=== PATIENT | male | born 1970 | race African-American/Black ===

== ENCOUNTER 2022-03-17 04:17 | Day surgery (SDC) | payer BC ==
[2022-03-15 15:32] VITALS: BMI 22.9
[2022-03-17 10:41] VITALS: TEMP 98
[2022-03-17 10:53] VITALS: RESP 19
[2022-03-17 12:16] VITALS: BP 116/69; PULSE 66
== END 2022-03-17 12:10 | disposition home or self-care (01) ==
LOC: JASU-ENDO 04:17
PROVIDERS: ATTEND Internal Medicine Gastroenterology
PROC: 0DBN8ZX Excision of Sigmoid Colon, Via Natural or Artificial Opening Endoscopic, Diagnostic (ICD-10-PCS; 2022-03-17)
PROC: 0DBK8ZX Excision of Ascending Colon, Via Natural or Artificial Opening Endoscopic, Diagnostic (ICD-10-PCS; principal; 2022-03-17 11:00)
DX: Z12.11 Encounter for screening for malignant neoplasm of colon (principal); D12.2 Benign neoplasm of ascending colon; D12.5 Benign neoplasm of sigmoid colon; K57.30 Diverticulosis of large intestine without perforation or abscess without bleeding; K64.8 Other hemorrhoids; E11.9 Type 2 diabetes mellitus without complications
CPT/HCPCS: 82962; 88305-TC

== ENCOUNTER 2023-03-24 09:22 | Emergency (ER) | payer BC, OTHER ==
[2023-03-24 09:28] VITALS: BMI 23.9
[2023-03-24] MEDS ORDERED: SODIUM CHLORIDE 0.9% 500 ML INFUS.BAG IV ONE ×2 (10:48→13:43)
[2023-03-24] MEDS ORDERED: ONDANSETRON 4 MG/2 ML VIAL IVPUSH ONE (10:48)
[2023-03-24] MEDS ORDERED: FAMOTIDINE 20 MG/50 ML IVPB 20 MG/50 ML MG IVPB ONE ×2 (10:48→11:17)
[2023-03-24] MEDS ORDERED: ONDANSETRON 4 MG/2 ML VIAL ONE (11:17)
[2023-03-24 11:54] LABS: VENOUS BASE EXCESS 0.6 mmol/L (-2-2); VENOUS O2 SATURATION 73.9 % (70-80); VENOUS PCO2 47.8 mmHg (38-52); VENOUS PH 7.365 (7.310-7.410)
[2023-03-24 11:58] LABS: HEMATOCRIT 47.3 % (35.4-49); MCH 28.1 pg (25.7-33.7); MCHC 33.9 g/dl (32.0-35.9); MEAN CELL VOLUME 82.9 fl (80-96); MEAN PLT VOLUME 9.4 fl (7.5-11.1); PLATELET COUNT 141 10^3/uL (134-434); RDW 13.9 % (11.9-15.9); WHITE BLOOD COUNT 9.9 K/mm3 (4.0-10.0)
[2023-03-24 12:04] LABS: INR 1.1 (0.83-1.09); PROTHROMBIN TIME (PATIENT) 12.8 SEC (9.7-13.0)
[2023-03-24] MEDS ORDERED: KETOROLAC TROMETHAMINE 30 MG/1 ML VIAL IVPUSH ONE (12:08)
[2023-03-24 12:24] LABS: ALBUMIN 3.9 g/dl (3.4-5.0); CALCIUM 9.1 mg/dL (8.5-10.1)
[2023-03-24 12:25] LABS: BLOOD UREA NITROGEN 21.6 mg/dL (7-18); MAGNESIUM 2.2 mg/dL (1.8-2.4)
[2023-03-24 12:27] LABS: CREATININE 1.1 mg/dL (0.55-1.3)
[2023-03-24] MEDS ORDERED: KETOROLAC TROMETHAMINE 30 MG/1 ML VIAL ONE (12:27)
[2023-03-24 12:29] LABS: BILIRUBIN,TOTAL 1.6 mg/dL (0.2-1); TOT PROT 7.5 g/dl (6.4-8.2)
[2023-03-24 12:33] LABS: THROAT:GRP A STREP NOT DETECTED (NOTDETECTED)
[2023-03-24 12:39] LABS: ANISOCYTOSIS 0; MACROCYTOSIS 0
[2023-03-24 13:01] LABS: URINE APPEARANCE CLEAR; URINE COLOR YELLOW
[2023-03-24 13:02] LABS: URINE BILIRUBIN NEGATIVE (NEGATIVE); URINE KETONE TRACE (NEGATIVE)
[2023-03-24 13:03] LABS: PH,URINE 5.5 (5.0-8.0); URINE GLUCOSE (UA) 3+ (NEGATIVE); URINE LEUK ESTERASE NEGATIVE (NEGATIVE); URINE NITRITE NEGATIVE (NEGATIVE); URINE PROTEIN NEGATIVE (NEGATIVE); URINE UROBILINOGEN 0.2 mg/dL (0.2-1.0)
[2023-03-24 13:41] VITALS: RESP 20
[2023-03-24] MEDS ORDERED: ACETAMINOPHEN 1000 MG/100 ML BAG IVPB ONE (13:43)
[2023-03-24 17:16] VITALS: BP 122/82; PULSE 89
[2023-03-24 19:14] VITALS: TEMP 97.8
== END 2023-03-24 19:34 | disposition home or self-care (01) ==
LOC: JER 09:22
PROC: 3E033GC Introduction of Other Therapeutic Substance into Peripheral Vein, Percutaneous Approach (ICD-10-PCS; principal; 2023-03-24)
PROC: 3E033NZ Introduction of Analgesics, Hypnotics, Sedatives into Peripheral Vein, Percutaneous Approach (ICD-10-PCS; 2023-03-24)
PROC: 3E0333Z Introduction of Anti-inflammatory into Peripheral Vein, Percutaneous Approach (ICD-10-PCS; 2023-03-24)
PROC: 3E033GC Introduction of Other Therapeutic Substance into Peripheral Vein, Percutaneous Approach (ICD-10-PCS; 2023-03-24)
DX: R10.84 Generalized abdominal pain (principal); R53.83 Other fatigue; M79.10 Myalgia, unspecified site; R11.0 Nausea; R19.7 Diarrhea, unspecified; R53.1 Weakness; Z20.822 Contact with and (suspected) exposure to COVID-19
CPT/HCPCS: 0241U-QW; 36415; 71046-TC-FY; 74177-TC; 76705-TC; 80053; 81003; 82010; 82803; 82962; 83605; 83735; 84100; 85025; 85610; 87086; 87651; 99285-25

== ENCOUNTER 2023-04-04 16:10 | Emergency (ER) | payer OTHER ==
[2023-04-04 16:34] VITALS: TEMP 98; BMI 26.2
[2023-04-04] MEDS ORDERED: SODIUM CHLORIDE 0.9% 500 ML INFUS.BAG IV ONE (17:23)
[2023-04-04] MEDS ORDERED: ACETAMINOPHEN 1000 MG/100 ML BAG IVPB ONE (17:23)
[2023-04-04 17:33] LABS: BASO % 0.6 % (0-2.0); EOS % 1.7 % (0-4.5); HEMATOCRIT 42.1 % (35.4-49); HEMOGLOBIN 13.8 GM/dL (11.7-16.9); MCH 27.3 pg (25.7-33.7); MCHC 32.8 g/dl (32.0-35.9); MEAN CELL VOLUME 83.3 fl (80-96); MEAN PLT VOLUME 8.5 fl (7.5-11.1); MONO % 8.1 % (3.8-10.2); NEUT % 58.6 % (42.8-82.8); PLATELET COUNT 191 10^3/uL (134-434); RBC 5.05 M/mm3 (4.00-5.60); RDW 14.1 % (11.9-15.9); WHITE BLOOD COUNT 6.2 K/mm3 (4.0-10.0)
[2023-04-04] MEDS ORDERED: ACETAMINOPHEN INJECTION 100 ML IVPB ONE (17:37)
[2023-04-04 17:58] LABS: POTASSIUM 4.5 mmol/L (3.5-5.1); URINE APPEARANCE CLEAR; URINE BILIRUBIN NEGATIVE (NEGATIVE); URINE COLOR YELLOW; URINE GLUCOSE (UA) TRACE (NEGATIVE); URINE KETONE TRACE (NEGATIVE); URINE LEUK ESTERASE NEGATIVE (NEGATIVE); URINE NITRITE NEGATIVE (NEGATIVE); URINE PROTEIN NEGATIVE (NEGATIVE)
[2023-04-04 18:00] LABS: CALCIUM 8.6 mg/dL (8.5-10.1)
[2023-04-04 18:01] LABS: ALBUMIN 3.4 g/dl (3.4-5.0); BLOOD UREA NITROGEN 20.7 mg/dL (7-18)
[2023-04-04 18:04] LABS: CREATININE 1.2 mg/dL (0.55-1.3)
[2023-04-04 18:05] LABS: BILIRUBIN,TOTAL 1.5 mg/dL (0.2-1)
[2023-04-04 18:06] LABS: TOT PROT 6.6 g/dl (6.4-8.2)
[2023-04-04] MEDS ORDERED: morphine CARPU-JECT 4 MG/1 ML DISP.SYRIN IVPUSH ONE (18:56)
[2023-04-04] MEDS ORDERED: ONDANSETRON 4 MG/2 ML VIAL IVPUSH ONE (18:56)
[2023-04-04] MEDS ORDERED: morphine SULFATE 4 MG/ML VIAL ONE (18:59)
[2023-04-04] MEDS ORDERED: ONDANSETRON 4 MG/2 ML VIAL ONE (18:59)
[2023-04-04 19:12] VITALS: BP 130/82; PULSE 62; RESP 20
[2023-04-04] MEDS ORDERED: LIDOCAINE 5% TOPICAL PATCH TP ONE (20:34)
[2023-04-04] MEDS ORDERED: LIDOCAINE PATCH REMOVAL MC SCH (22:00)
== END 2023-04-04 22:02 | disposition home or self-care (01) ==
LOC: JER 16:10
PROC: 3E033NZ Introduction of Analgesics, Hypnotics, Sedatives into Peripheral Vein, Percutaneous Approach (ICD-10-PCS; principal; 2023-04-04)
PROC: 3E033GC Introduction of Other Therapeutic Substance into Peripheral Vein, Percutaneous Approach (ICD-10-PCS; 2023-04-04)
PROC: 3E033GC Introduction of Other Therapeutic Substance into Peripheral Vein, Percutaneous Approach (ICD-10-PCS; 2023-04-04)
DX: N20.0 Calculus of kidney (principal); K82.4 Cholesterolosis of gallbladder; R10.32 Left lower quadrant pain; R19.7 Diarrhea, unspecified; R82.998 Other abnormal findings in urine; R10.31 Right lower quadrant pain
CPT/HCPCS: 36415; 74176-TC; 76700-TC; 80053; 81003; 83605; 83690; 85025; 87086; 99285-25

== ENCOUNTER 2023-06-05 05:10 | Day surgery (SDC) | payer OTHER ==
[2023-05-29 12:01] VITALS: BMI 23.2
[2023-06-05] MEDS ORDERED: INDOCYANINE GREEN 25 MG/10 ML VIAL IVPUSH ONE (07:16)
[2023-06-05] MEDS ORDERED: HEPARIN NA (PORCINE) 5,000 UNITS/ML 1ML VIAL ONE (07:16)
[2023-06-05] MEDS ORDERED: BUPIVACAINE HCL/PF 0.25% (2.5MG/ML) 10 ML VIAL ONE (07:16)
[2023-06-05 07:44] VITALS: BP 127/84; PULSE 79; RESP 18; TEMP 98.4
[2023-06-05 08:27] LABS: GLUCOSE,RANDOM 490 mg/dL (74-106)
== END 2023-06-05 08:30 | disposition home or self-care (01) ==
LOC: JASU-SURG 05:10
PROVIDERS: ATTEND Surgery
DX: Z53.8 Procedure and treatment not carried out for other reasons (principal)
CPT/HCPCS: 36415; 82947; 82962; J1644

== ENCOUNTER 2023-06-05 08:31 | Emergency (ER) | payer OTHER ==
[2023-06-05 08:43] VITALS: BP 127/83; PULSE 73; RESP 18; TEMP 98; BMI 23.2
[2023-06-05] MEDS: SODIUM CHLORIDE 0.9% 500 ML INFUS.BAG IV ONE (09:18)
[2023-06-05 09:19] LABS: VENOUS BASE EXCESS -1.6 mmol/L (-2-2); VENOUS O2 SATURATION 67.4 % (70-80); VENOUS PH 7.32 (7.310-7.410)
[2023-06-05 09:26] LABS: EOS % 1.6 % (0-4.5); HEMATOCRIT 43.6 % (35.4-49); HEMOGLOBIN 14.6 GM/dL (11.7-16.9); LYMPH % 27.8 % (8-40); MCH 28.5 pg (25.7-33.7); MCHC 33.4 g/dl (32.0-35.9); MEAN CELL VOLUME 85.3 fl (80-96); MEAN PLT VOLUME 9.8 fl (7.5-11.1); MONO % 6.7 % (3.8-10.2); NEUT % 62.9 % (42.8-82.8); PLATELET COUNT 157 10^3/uL (134-434); RBC 5.12 M/mm3 (4.00-5.60); RDW 14.3 % (11.9-15.9); WHITE BLOOD COUNT 6.7 K/mm3 (4.0-10.0)
[2023-06-05 09:48] LABS: POTASSIUM 5.1 mmol/L (3.5-5.1)
[2023-06-05 09:51] LABS: ALBUMIN 3.9 g/dl (3.4-5.0); BLOOD UREA NITROGEN 25.8 mg/dL (7-18); CALCIUM 8.9 mg/dL (8.5-10.1)
[2023-06-05 09:55] LABS: BILIRUBIN,TOTAL 1.4 mg/dL (0.2-1); CREATININE 1.5 mg/dL (0.55-1.3)
[2023-06-05 09:56] LABS: TOT PROT 7.5 g/dl (6.4-8.2)
[2023-06-05] MEDS: LACTATED RINGERS SOLUTION 1000 ML INFUS.BAG IV ONE (10:35)
[2023-06-05 11:03] LABS: PH,URINE 5.5 (5.0-8.0); URINE APPEARANCE CLEAR; URINE BILIRUBIN NEGATIVE (NEGATIVE); URINE COLOR YELLOW; URINE GLUCOSE (UA) 3+ (NEGATIVE); URINE KETONE NEGATIVE (NEGATIVE); URINE LEUK ESTERASE NEGATIVE (NEGATIVE); URINE NITRITE NEGATIVE (NEGATIVE); URINE PROTEIN NEGATIVE (NEGATIVE); URINE UROBILINOGEN 0.2 mg/dL (0.2-1.0)
[2023-06-05 11:43] LABS: CALCIUM 8.6 mg/dL (8.5-10.1)
[2023-06-05 11:44] LABS: BLOOD UREA NITROGEN 22.2 mg/dL (7-18)
[2023-06-05 11:47] LABS: CREATININE 1.3 mg/dL (0.55-1.3)
== END 2023-06-05 12:07 | disposition home or self-care (01) ==
LOC: JER 08:31
DX: E11.65 Type 2 diabetes mellitus with hyperglycemia (principal); R35.0 Frequency of micturition
CPT/HCPCS: 36415; 80048; 80053; 81003; 82010; 82803; 82962; 85025; 87086; 99284-25

== ENCOUNTER 2023-06-08 05:07 | Day surgery (SDC) | payer OTHER ==
[2023-06-06 16:59] VITALS: BMI 23.2
[2023-06-08] MEDS ORDERED: BUPIVACAINE HCL/PF 0.25% (2.5MG/ML) 10 ML VIAL ONE (07:47)
[2023-06-08] MEDS ORDERED: PROPOFOL 20 ML ONE (07:55)
[2023-06-08] MEDS ORDERED: MIDAZOLAM HCL 2 MG/2 ML SINGLE DOSE VIAL ONE (07:55)
[2023-06-08] MEDS ORDERED: ROCURONIUM BROMIDE 50 MG/5 ML SYRINGE ONE (07:55)
[2023-06-08] MEDS ORDERED: FENTANYL CITRATE/PF 50 MCG/ML VIAL ONE ×7 (07:55→11:42)
[2023-06-08] MEDS ORDERED: SODIUM CHLORIDE 0.9% P/F 10 ML VIAL IJ ONE (07:56)
[2023-06-08] MEDS ORDERED: LIDOCAINE HCL/PF 2% SDV 5ML VIAL ONE (07:56)
[2023-06-08] MEDS ORDERED: ceFAZolin SODIUM 1 GM VIAL ONE (07:56)
[2023-06-08] MEDS: ceFAZolin SODIUM 1 GM VIAL IVPB ONE (08:24)
[2023-06-08] MEDS ORDERED: METOCLOPRAMIDE HCL INJECTION 10 MG/2 ML VIAL ONE (08:33)
[2023-06-08] MEDS ORDERED: DEXAMETHASONE SOD PHOSPHATE 4 MG/1 ML VIAL ONE (08:33)
[2023-06-08] MEDS: HEPARIN NA (PORCINE) 5,000 UNITS/ML 1ML VIAL SQ ONE (08:33)
[2023-06-08] MEDS ORDERED: ONDANSETRON 4 MG/2 ML VIAL ONE (08:33)
[2023-06-08] MEDS: BUPIVACAINE HCL/PF 0.25% (2.5MG/ML) 10 ML VIAL IJ ONE (08:49)
[2023-06-08] MEDS ORDERED: GLYCOPYRROLATE 0.2 MG/1 ML VIAL ONE (08:55)
[2023-06-08] MEDS ORDERED: SUGAMMADEX SODIUM 200 MG/2 ML VIAL ONE (10:24)
[2023-06-08] MEDS ORDERED: ONDANSETRON 4 MG/2 ML VIAL IVPUSH PRN (10:45)
[2023-06-08] MEDS ORDERED: LACTATED RINGERS SOLUTION 1,000 ML IV SCH (10:45)
[2023-06-08] MEDS ORDERED: PROMETHAZINE HCL 25 MG/1 ML VIAL IVPB PRN (10:45)
[2023-06-08] MEDS ORDERED: oxyCODONE HCL 5 MG TABLET PO PRN (10:45)
[2023-06-08 12:45] VITALS: RESP 18
[2023-06-08 13:52] VITALS: BP 134/84; PULSE 66; TEMP 97.8
== END 2023-06-08 15:40 | disposition home or self-care (01) ==
LOC: JASU-SURG 05:07
PROVIDERS: ATTEND Surgery
PROC: 8E0W4CZ Robotic Assisted Procedure of Trunk Region, Percutaneous Endoscopic Approach (ICD-10-PCS; 2023-06-08)
PROC: 0WUF4JZ Supplement Abdominal Wall with Synthetic Substitute, Percutaneous Endoscopic Approach (ICD-10-PCS; principal; 2023-06-08 08:00)
DX: K42.9 Umbilical hernia without obstruction or gangrene (principal)
CPT/HCPCS: 49591; S2900; 82962; 94760; C1781; J1644